=== PATIENT | male | born 1950 | race Caucasian/White ===

== ENCOUNTER 2018-04-04 09:46 | Observation (INO) | payer BC ==
[~2018-04-04] VITALS: Ht 182.9 cm; Wt 102.3 kg
[2018-04-04] MEDS ORDERED: XARELTO20 MG PO (10:18)
[2018-04-04] MEDS ORDERED: VITAMIN D 1001000 IU PO (10:19)
[2018-04-04] MEDS ORDERED: NATURAL IRON65 MG PO (10:19)
[2018-04-04] MEDS ORDERED: B-12 100 MCG PO (10:19)
[2018-04-04] MEDS ORDERED: DRAMAMINE 50MG50 MG PO (10:26)
[2018-04-04 10:32] LABS: BASO % 0.4 % (0.0-2.0); EOS % 0.7 % (0-4.0); GRAN # 3.5 (1.4-6.5); GRAN % 64.5 % (42.2-75.2); HEMATOCRIT 48.3 % (42.0-52.0); LYMPH # 1.5 (1.2-3.4); LYMPH % 26.9 % (20.0-51.0); MEAN CELL VOLUME 87 fl (80.0-100.0); MEAN CORPUSCULAR HEMOGLOBIN 31 pg (27.0-31.0); MEAN CORPUSCULAR HGB CONC 35 g/dl (33.0-37.0); MEAN PLATELET VOLUME 11.5 fl (7.4-10.4); MONO # 0.4 (0.1-0.6); MONO % 7.1 % (1.7-9.3); PLATELET COUNT 179 K/mm3 (130-400); RED BLOOD COUNT 5.58 M/mm3 (4.20-5.60); REDCELL DISTRIBUTION WIDTH-CV 13.9 % (11.5-14.5)
[2018-04-04 10:38] LABS: ALANINE AMINOTRANSFERASE 32 U/L (21-72); ALKALINE PHOSPHATASE 68 U/L (50-136); ANION GAP 8 mmol/L (7-16); AST,SGOT 29 U/L (15-37); BILIRUBIN,TOTAL 0.9 mg/dL (0.0-1.0); BLOOD UREA NITROGEN 13 mg/dL (9-20); CALCIUM 9.1 mg/dL (8.4-10.2); CARBON DIOXIDE 23 mmol/L (22-30); CHLORIDE 108 mmol/L (98-107); CREATININE, serum 0.85 mg/dL (0.66-1.25); GLUCOSE 117 mg/dL (74-106); SODIUM 139 mmol/L (137-145); TOTAL PROTEIN 7.1 gm/dL (6.4-8.2)
[2018-04-04 10:43] LABS: INR 1.4 (0.8-3.0); PROTHROMBIN TIME 16.1 SECONDS (9.7-12.8)
[2018-04-04 10:49] LABS: TROPONIN-I < 0.012 ng/mL (0.000-0.034)
[2018-04-04 10:51] LABS: D-DIMER < 200.00 ng/mLDDu (200-230)
[2018-04-04 10:56] LABS: PARTIAL THROMBOPLASTIN TIME 41.5 SECONDS (26.0-37.0)
[2018-04-04 19:20] VITALS: BP 133/77; PULSE 67; TEMP 97.8
[2018-04-04 23:35] VITALS: BP 111/62; PULSE 67; TEMP 97.6
[2018-04-05 03:21] VITALS: BP 103/56; PULSE 80; TEMP 97.5
[2018-04-05 07:31] LABS: BASO % 0.6 % (0.0-2.0); EOS # 0.1 (0.0-0.7); EOS % 1.8 % (0-4.0); GRAN # 2.7 (1.4-6.5); GRAN % 53.7 % (42.2-75.2); HEMATOCRIT 45.5 % (42.0-52.0); HEMOGLOBIN 15.4 g/dl (13.5-18.0); LYMPH # 1.8 (1.2-3.4); LYMPH % 34.9 % (20.0-51.0); MEAN CELL VOLUME 89 fl (80.0-100.0); MEAN CORPUSCULAR HEMOGLOBIN 30 pg (27.0-31.0); MEAN CORPUSCULAR HGB CONC 34 g/dl (33.0-37.0); MEAN PLATELET VOLUME 11.5 fl (7.4-10.4); MONO # 0.4 (0.1-0.6); MONO % 8.6 % (1.7-9.3); PLATELET COUNT 160 K/mm3 (130-400); RED BLOOD COUNT 5.14 M/mm3 (4.20-5.60)
[2018-04-05 07:33] VITALS: BP 119/86; PULSE 57; TEMP 98
[2018-04-05 07:40] LABS: ANION GAP 6 mmol/L (7-16); BLOOD UREA NITROGEN 13 mg/dL (9-20); CALCIUM 8.5 mg/dL (8.4-10.2); CARBON DIOXIDE 25 mmol/L (22-30); CHLORIDE 107 mmol/L (98-107); CHOLESTEROL 180 mg/dL (120-200); CHOLESTEROL RISK RATIO 5.4; CREATININE, serum 0.88 mg/dL (0.66-1.25); GLUCOSE 94 mg/dL (74-106); HDL CHOLESTEROL 33 mg/dL; LDL CHOLESTEROL 128 mg/dL; SODIUM 138 mmol/L (137-145); TRIGLYCERIDE 97 mg/dL
[2018-04-05 07:48] LABS: TROPONIN-I < 0.012 ng/mL (0.000-0.034)
[2018-04-05 12:10] VITALS: BP 165/72; PULSE 51; TEMP 98.1
[2018-04-05 15:38] VITALS: BP 122/76; PULSE 66; TEMP 98.3
[2018-04-05 19:27] VITALS: BP 125/80; PULSE 69; TEMP 98.7
[2018-04-05 23:20] VITALS: BP 107/70; PULSE 80; TEMP 98.8
[2018-04-06 04:30] VITALS: BP 133/79; PULSE 71; TEMP 97.6
[2018-04-06 07:54] VITALS: BP 127/60; PULSE 75; TEMP 98.3
[2018-04-06 11:24] VITALS: BP 128/72; PULSE 47; TEMP 98.2
[2018-04-06 16:01] VITALS: BP 118/62; PULSE 63; TEMP 97.5
[2018-04-06 20:30] VITALS: BP 135/65; PULSE 50; TEMP 97.4
[2018-04-07 00:52] VITALS: BP 116/70; PULSE 64; TEMP 98.2
[2018-04-07 05:14] VITALS: BP 108/60; PULSE 68
[2018-04-07 11:52] VITALS: BP 129/94; PULSE 64; TEMP 98.2
[2018-04-07] MEDS ORDERED: ASPIRIN 81M81 MG/TA2 PO (13:22)
[2018-04-07] MEDS ORDERED: LIPITOR20 MG PO (13:22)
[2018-04-07] MEDS ORDERED: DRAMAMINE 50MG50 MG PO (14:22)
[2018-04-07] MEDS ORDERED: ZOLOFT 25MG25 MG PO (14:22)
== END 2018-04-07 15:07 | disposition home or self-care (01) ==
LOC: COL.ER 09:46 → ICU 10:48 → MEDICAL 14:30
PROVIDERS: Family Medicine
DX: R06.09 Other forms of dyspnea (principal); I48.0 Paroxysmal atrial fibrillation; F32.9 Major depressive disorder, single episode, unspecified; F41.9 Anxiety disorder, unspecified; Z79.01 Long term (current) use of anticoagulants; Z88.0 Allergy status to penicillin; Z88.8 Allergy status to other drugs, medicaments and biological substances; Z86.718 Personal history of other venous thrombosis and embolism; Z86.711 Personal history of pulmonary embolism; Z87.891 Personal history of nicotine dependence
CPT/HCPCS: 99222-AI; 99223-AI; 99232-AI; A9502; A9585; G0378; J1650; J7030; Q9967